=== PATIENT | male | born 1980 | race Caucasian/White ===

== ENCOUNTER 2016-04-21 12:26 | Emergency (ER) | payer BC ==
[~2016-04-21] VITALS: Ht 177.8 cm; Wt 89.0 kg
[2016-04-21 12:30] VITALS: BP 136/93; PULSE 64; RESP 20; TEMP 97.7; O2SAT 97
--- NOTE | 2016-04-21 13:41 | PD ---
HPI Chief Complaint: Lump, Cyst, Hernia Time Seen by Provider: 13:41 Travel History International Travel<30 days: Yes Contact w/Intl Traveler<30days: Yes Name of Country Traveled to: [place] Traveled to known affect area: No History of Present Illness HPI 36-year-old male with history of hypertension presents to the emergency department for evaluation by his primary care provider. Patient has been having right testicular pain and pressure in the groin area. This is been worsening over the last 2-3 days. He contacted his primary care provider and was seen this morning. They sent him for stat CT at [facility] however they were unable to do this secondary to insurance reasons. Patient denies nausea or vomiting. No urinary symptoms however he has not had a bowel movement in several days which is unlikely for him. He states typically very regular goes 2 -3 times a day. Denies any chest tightness. No difficulty breathing. No testicular swelling. No exacerbation or alleviation of pain. No other symptoms to report PFSH Past Medical History Cardiovascular Problems: Yes (HTN) Social History Tobacco Use: No Allergies-Medications (Allergen,Severity, Reaction): Coded Allergies: Hctz (Verified Allergy, Severe, 04/21/16) Ketamine (Verified Allergy, Severe, Anaphylaxis, 04/21/16) Reported Meds & Prescriptions Reported Meds & Active Scripts Active Ibuprofen 800 Mg Tab 800 Mg PO Q8H PRN Reported Cozaar (Losartan Potassium) 100 Mg Tab 100 Mg PO DAILY Review of Systems Except as stated in HPI: all other systems reviewed are Neg Physical Exam Narrative GENERAL: Well-nourished male patient, ambulatory and in no acute distress SKIN: Warm and dry. HEAD: Atraumatic. Normocephalic. EYES: Pupils equal and round. No scleral icterus. No injection or drainage. ENT: No nasal bleeding or discharge. Mucous membranes pink and moist. NECK: Trachea midline. No JVD. CARDIOVASCULAR: Regular rate and rhythm. No murmur appreciated. RESPIRATORY: No accessory muscle use. Clear to auscultation. Breath sounds equal bilaterally. GASTROINTESTINAL: Abdomen soft, non-tender, nondistended. Hepatic and splenic margins not palpable. GENITOURINARY: Circumcised. Testes descended bilaterally without evidence of rotation. No lesions or erythema. No urethral discharge. Tenderness elicited with examination of the right inguinal canal however there is no bulging or palpable hernia. MUSCULOSKELETAL: No obvious deformities. No clubbing. No cyanosis. No edema. NEUROLOGICAL: Awake and alert. No obvious cranial nerve deficits. Motor grossly within normal limits. Normal speech. PSYCHIATRIC: Appropriate mood and affect; insight and judgment normal. Data Data Last Documented VS Vital Signs Date Time Temp Pulse Resp B/P Pulse Ox O2 Delivery O2 Flow Rate FiO2 04/21/16 13:45 80 18 04/21/16 12:30 97.7 136/93 97 Room Air Orders Complete Blood Count With Diff (04/21/16 13:37) Basic Metabolic Panel (Bmp) (04/21/16 13:37) Iv Access Insert/Monitor (04/21/16 13:37) Ct Abd/Pel W Iv Contrast(Rout) (04/21/16 ) Oral Contrast - Adult (04/21/16 13:46) Diatrizoate Liq ( Gastroview Liq) (04/21/16 14:01) Iohexol 350 Inj (Omnipaque 350 Inj) (04/21/16 15:26) Ketorolac Inj (Toradol Inj) (04/21/16 16:00) Labs Laboratory Tests Test 04/21/16 13:55 White Blood Count 5.9 TH/MM3 Red Blood Count 5.26 MIL/MM3 Hemoglobin 14.9 GM/DL Hematocrit 44.4 % Mean Corpuscular Volume 84.4 FL Mean Corpuscular Hemoglobin 28.4 PG Mean Corpuscular Hemoglobin 33.6 % Concent Red Cell Distribution Width 13.6 % Platelet Count 195 TH/MM3 Mean Platelet Volume 9.3 FL Neutrophils (%) (Auto) 64.3 % Lymphocytes (%) (Auto) 24.2 % Monocytes (%) (Auto) 10.4 % Eosinophils (%) (Auto) 0.5 % Basophils (%) (Auto) 0.6 % Neutrophils # (Auto) 3.8 TH/MM3 Lymphocytes # (Auto) 1.4 TH/MM3 Monocytes # (Auto) 0.6 TH/MM3 Eosinophils # (Auto) 0.0 TH/MM3 Basophils # (Auto) 0.0 TH/MM3 CBC Comment DIFF FINAL Differential Comment Sodium Level 140 MEQ/L Potassium Level 4.2 MEQ/L Chloride Level 105 MEQ/L Carbon Dioxide Level 32.4 MEQ/L Anion Gap 3 MEQ/L Blood Urea Nitrogen 12 MG/DL Creatinine 1.11 MG/DL Estimat Glomerular Filtration 75 ML/MIN Rate Random Glucose 85 MG/DL Calcium Level 8.9 MG/DL [facility] Medical Decision Making Medical Screen Exam Complete: Yes Emergency Medical Condition: Yes Medical Record Reviewed: Yes Differential Diagnosis Inguinal hernia incarcerated versus reducible versus muscle strain versus constipation Narrative Course 36-year-old male presents to emergency department for evaluation of possible inguinal hernia. Patient sent him with that order for CT of the abdomen and pelvis with contrast. Workup was initiated in triage. Patient appears overall well. Testicular exam is without acute concern. Abdominal exam is benign. His vital signs are stable. 1450 I called and spoke with lab in regards to pt's chem panel as it has not resulted. I am told that it has been published. 1550 CBC and BMP are without acute concern. CT imaging of the abdomen and pelvis shows no acute abdominal abnormality. I discussed the findings with my attending physician Dr. paulino. Patient is provided additional pain control. He' ll be discharged home to follow-up with his primary care provider. He agrees with this plan of care and will return immediately with any acute worsening. Diagnosis Primary Impression: Right inguinal pain Referrals: Primary Care Physician Patient Instructions: General Instructions, Inguinal Hernia (ED) Additional Instructions: Avoid heavy lifting, bending, straining Follow-up to primary care provider Return immediately to the emergency department with any acute worsening symptoms Med/Other Pt SpecificInfo: Prescription(s) given Scripts Ibuprofen 800 Mg Sad600 Mg PO Q8H PRN (Pain/Inflammation) #30 TAB Ref 0 Prov:Justyna Solano 04/21/16 Disposition: 01 DISCHARGE HOME Condition: Stable Justyna Solano Apr 21, 2016 13:41
[2016-04-21] MEDS ORDERED: COZA100T PO (13:49)
[2016-04-21] MEDS ORDERED: DIATRIZOATE MEGLUM/DIATRIZOATE SOD 9 ML CUP ONE (14:01)
[2016-04-21 14:27] LABS: AUTOMATED NEUTROPHIL # 3.8 TH/MM3 (1.8-7.7); BASOPHIL % 0.6 % (0.0-2.0); EOSINOPHIL % 0.5 % (0.0-4.0); HEMATOCRIT 44.4 % (39.0-51.0); HEMO FLAGS DIFF FINAL; LYMPH % 24.2 % (9.0-44.0); LYMPHOCYTE # 1.4 TH/MM3 (1.0-4.8); MEAN CELL VOLUME 84.4 FL (80.0-100.0); MEAN CORPUSCULAR HEMOGLOBIN 28.4 PG (27.0-34.0); MEAN CORPUSCULAR HGB CONC 33.6 % (32.0-36.0); MONO % 10.4 % (0.0-8.0); NEUT % 64.3 % (16.0-70.0); PLATELET COUNT 195 TH/MM3 (150-450); RED BLOOD COUNT 5.26 MIL/MM3 (4.50-5.90); RED CELL DISTRIBUTION WIDTH 13.6 % (11.6-17.2); WHITE BLOOD COUNT 5.9 TH/MM3 (4.0-11.0)
[2016-04-21 14:49] LABS: BICARBONATE 32.4 MEQ/L (21.0-32.0); POTASSIUM 4.2 MEQ/L (3.5-5.1)
[2016-04-21] MEDS ORDERED: IOHEXOL 350 MG/ML 10 ML VIAL (for RAD DIAG) IV ONE (15:26)
--- NOTE | 2016-04-21 15:44 | RADRPT ---
EXAM DATE/TIME: 04/21/2016 15:24 [facility] COMPARISON: No previous studies available for comparison. INDICATIONS : Pain to right groin and lower quadrant. IV CONTRAST: 100 cc Omnipaque 350 (iohexol) IV ORAL CONTRAST: Prescribed oral contrast ingested. RADIATION DOSE: 10.15 CTDIvol (mGy) MEDICAL HISTORY : Hypertension. Cardiovascular disease SURGICAL HISTORY : None. ENCOUNTER: Initial ACUITY: 2 days PAIN SCALE: 2/10 LOCATION: Right lower quadrant TECHNIQUE: Volumetric scanning of the abdomen and pelvis was performed. Using automated exposure control and adjustment of the mA and/or kV according to patient size, radiation dose was kept as low as reasonably achievable to obtain optimal diagnostic quality images. FINDINGS: Lung bases are clear. The liver is free of focal defects. Spleen, pancreas, adrenals and kidneys are unremarkable. The region of the cecum and terminal ileum are unremarkable. There is a normal appearing appendix in the right lower quadrant. There are no inflammatory changes evident. Bladder, prostate and seminal vesicles are unremarkable. CONCLUSION: Negative CT scan of the abdomen and pelvis. I do not see an etiology for the patient 's pain. Nahun Sarmiento MD FACR on April 21, 2016 at 15:38 Board Certified Radiologist. This report was verified electronically.
[2016-04-21] MEDS ORDERED: IBUP800T23 PO (15:56)
[2016-04-21] MEDS ORDERED: KETOROLAC TROMETHAMINE 30 MG/ML (IVP) VIAL IV PUSH ONE (16:00)
== END 2016-04-21 16:21 | disposition home or self-care (01) ==
LOC: NETRI 12:26
DX: N50.811 Right testicular pain (principal); I10 Essential (primary) hypertension
CPT/HCPCS: 74177; 80048; 85025; 96374; 99284; J1885; Q9963; Q9967